=== PATIENT | female | born 2000 | race Caucasian/White ===

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

== ENCOUNTER 2019-02-14 16:01 | Emergency (ER) | payer SELFPAY ==
--- NOTE | 2019-02-14 16:15 | EDM.PDOC ---
ED HPI GENERAL MEDICAL PROBLEM - General Chief Complaint: Gastrointestinal Problem Stated Complaint: NAUSEA/VOMITING - POST TONSILLECTOMY Time Seen by Provider: 02/14/19 16:13 Source of Information: Reports: Patient History Limitations: Reports: No Limitations - History of Present Illness INITIAL COMMENTS - FREE TEXT/NARRATIVE: Patient is a 18-year-old female presents to the ED complaining nausea/vomiting and generalized abdominal cramping with constipation. Patient had a tonsillectomy performed this past Saturday. Since then patient has been vomiting on and off. She's had no issues with her throat postop. At time she's been able to keep food and liquids down. As of recent she has been unable to. She's been taking Zofran and has taken promethazine gel with tetracaine lollipops as well as ibuprofen and Tylenol. She has been using oxycodone on intermittent basis. Mom states the patient does have a history constipation and notes she has been taking MiraLAX prior to surgery. Patient took a suppository yesterday. She does not recall when she had her last BM. Patient denies any fever, ear pain, chest pain, shortness of breath, cough, diarrhea, bloody stool, painful urination, nuchal rigidity, or any additional complaints. Throat Pain Score (Numeric/FACES): 2 - Related Data Allergies Allergy/AdvReac Type Severity Reaction Status Date / Time No Known Allergies Allergy Verified 08/14/18 19:32 Home Meds: Home Meds Ondansetron [Zofran ODT] 1 tab PO Q6HR PRN 02/14/19 [History] Promethazine [Phenergan] 25 mg TOP Q6HR PRN 02/14/19 [History] oxyCODONE 5 mg PO Q4HR PRN 02/14/19 [History] Past Medical History HEENT History: Reports: Allergic Rhinitis, Impaired Vision Genitourinary History: Reports: Other (See Below) Other Genitourinary History: kidney failure at age 11, states it resolved itself Psychiatric History: Reports: Anxiety (untreated), Depression (untreated), Other (See Below) (Insomnia) Other Psychiatric History: difficulty sleeping - Past Surgical History HEENT Surgical History: Reports: Myringotomy w Tube(s) (bilateral), Tonsillectomy Social & Family History - Caffeine Use Caffeine Use: Reports: None - Living Situation & Occupation Living situation: Reports: Single, with Family Occupation: Unemployed ED ROS GENERAL - Review of Systems Review Of Systems: ROS reveals no pertinent complaints other than HPI. ED EXAM, GI/ABD - Physical Exam Exam: See Below Exam Limited By: No Limitations General Appearance: Alert, WD/WN, No Apparent Distress Ears: Hearing Grossly Normal Nose: Normal Inspection Throat/Mouth: Normal Inspection, Normal Voice, No Airway Compromise, Other (S/P tonsillectomy with white eschar to posterior pharynx. No erythema, swelling, uvula deviation or concerning findings. Oral mucosa is moist. ) Head: Atraumatic, Normocephalic Neck: Normal Inspection, Supple Respiratory/Chest: No Respiratory Distress, Lungs Clear, Normal Breath Sounds, No Accessory Muscle Use, Chest Non-Tender Cardiovascular: Normal Peripheral Pulses, Regular Rate, Rhythm, No Murmur GI/Abdominal Exam: Soft, Non-Tender, No Organomegaly, No Distention, Abnormal Bowel Sounds (hyperactive). No: Normal Bowel Sounds Back Exam: Normal Inspection. No: CVA Tenderness (L), CVA Tenderness (R) Extremities: Normal Inspection, Normal Range of Motion Neurological: Alert, Oriented, CN II-XII Intact, Normal Cognition, No Motor/ Sensory Deficits Psychiatric: Normal Affect, Normal Mood Skin Exam: Warm, Dry, Intact, Normal Color Course - Vital Signs Last Recorded V/S: Last Vital Signs Temp 98.4 F 02/14/19 16:11 Pulse 92 02/14/19 16:11 Resp 16 02/14/19 16:11 BP 113/61 02/14/19 16:11 Pulse Ox 100 02/14/19 16:11 - Orders/Labs/Meds Orders: Active Orders 24 hr Category Date Time Status Enema [RC] ASDIRECTED Care 02/14/19 18:22 Active Peripheral IV Care [RC] . DIRECTED Care 02/14/19 16:29 Active Abdomen 2V AP Flat Upright [CR] Stat Exams 02/14/19 16:28 Taken Peripheral IV Insertion Adult [OM.PC] Routine Oth 02/14/19 16:29 Ordered Labs: Laboratory Tests 02/14/19 02/14/19 02/14/19 Range/Units 16:45 16:45 18:30 WBC 6.66 (3.98-10.04) K/mm3 RBC 5.20 (3.98-5.22) M/mm3 Hgb 14.9 (11.2-15.7) gm/L Hct 43.8 (34.1-44.9) % MCV 84.2 (79.4-94.8) fl MCH 28.7 (25.6-32.2) pg MCHC 34.0 (32.2-35.5) g/dl RDW Std Deviation 37.3 (36.4-46.3) fL Plt Count 294 (182-369) K/mm3 MPV 10.1 (9.4-12.3) fl Neutrophils % (Manual) 64 H (40-60) % Band Neutrophils % 0 (0-10) % Lymphocytes % (Manual) 34 (20-40) % Atypical Lymphs % 0 % Monocytes % (Manual) 2 (2-10) % Eosinophils % (Manual) 0 L (0.7-5.8) % Basophils % (Manual) 0 L (0.1-1.2) Platelet Estimate Adequate Plt Morphology Comment Normal RBC Morph Comment Normal Sodium 136 (136-145) mEq/L Potassium 3.9 (3.5-5.1) mEq/L Chloride 99 (98-107) mEq/L Carbon Dioxide 22 (21-32) mEq/L Anion Gap 18.9 H (5-15) BUN 9 (7-18) mg/dL Creatinine 0.7 (0.55-1.02) mg/dL Est Cr Clr Drug Dosing 97.54 mL/min Estimated GFR (MDRD) > 60 (>60) mL/min BUN/Creatinine Ratio 12.9 L (14-18) Glucose 77 (74-106) mg/dL Calcium 9.6 (8.5-10.1) mg/dL Total Bilirubin 0.6 (0.2-1.0) mg/dL AST 21 (15-37) U/L ALT 23 (14-59) U/L Alkaline Phosphatase 93 (46-116) U/L C-Reactive Protein 1.2 H* (<1.0) mg/dL Total Protein 8.5 H (6.4-8.2) g/dl Albumin 4.2 (3.4-5.0) g/dl Globulin 4.3 gm/dL Albumin/Globulin Ratio 1.0 (1-2) Lipase 75 (73-393) U/L Urine Color (Yellow) Urine Appearance (Clear) Urine pH (5.0-8.0) Ur Specific Almo (1.005-1.030) Urine Protein (Negative) Urine Glucose (UA) (Negative) Urine Ketones (Negative) Urine Occult Blood (Negative) Urine Nitrite (Negative) Urine Bilirubin (Negative) Urine Urobilinogen (0.2-1.0) Ur Leukocyte Esterase (Negative) Urine RBC (0-5) /hpf Urine WBC (0-5) /hpf Ur Squamous Epith Cells (0-5) /hpf Urine Bacteria (FEW) /hpf Urine Mucus (FEW) /hpf Urine HCG, Qual Negative (NEGATIVE) 02/14/19 Range/Units 18:30 WBC (3.98-10.04) K/mm3 RBC (3.98-5.22) M/mm3 Hgb (11.2-15.7) gm/L Hct (34.1-44.9) % MCV (79.4-94.8) fl MCH (25.6-32.2) pg MCHC (32.2-35.5) g/dl RDW Std Deviation (36.4-46.3) fL Plt Count (182-369) K/mm3 MPV (9.4-12.3) fl Neutrophils % (Manual) (40-60) % Band Neutrophils % (0-10) % Lymphocytes % (Manual) (20-40) % Atypical Lymphs % % Monocytes % (Manual) (2-10) % Eosinophils % (Manual) (0.7-5.8) % Basophils % (Manual) (0.1-1.2) Platelet Estimate Plt Morphology Comment RBC Morph Comment Sodium (136-145) mEq/L Potassium (3.5-5.1) mEq/L Chloride (98-107) mEq/L Carbon Dioxide (21-32) mEq/L Anion Gap (5-15) BUN (7-18) mg/dL Creatinine (0.55-1.02) mg/dL Est Cr Clr Drug Dosing mL/min Estimated GFR (MDRD) (>60) mL/min BUN/Creatinine Ratio (14-18) Glucose (74-106) mg/dL Calcium (8.5-10.1) mg/dL Total Bilirubin (0.2-1.0) mg/dL AST (15-37) U/L ALT (14-59) U/L Alkaline Phosphatase (46-116) U/L C-Reactive Protein (<1.0) mg/dL Total Protein (6.4-8.2) g/dl Albumin (3.4-5.0) g/dl Globulin gm/dL Albumin/Globulin Ratio (1-2) Lipase (73-393) U/L Urine Color Yellow (Yellow) Urine Appearance Clear (Clear) Urine pH 5.5 (5.0-8.0) Ur Specific Almo > or = 1.030 (1.005-1.030) Urine Protein Negative (Negative) Urine Glucose (UA) Negative (Negative) Urine Ketones 4+ H (Negative) Urine Occult Blood Trace-intact H (Negative) Urine Nitrite Negative (Negative) Urine Bilirubin 1+ H (Negative) Urine Urobilinogen 0.2 (0.2-1.0) Ur Leukocyte Esterase Negative (Negative) Urine RBC 0-5 (0-5) /hpf Urine WBC 0-5 (0-5) /hpf Ur Squamous Epith Cells 10-20 H (0-5) /hpf Urine Bacteria Rare (FEW) /hpf Urine Mucus Moderate H (FEW) /hpf Urine HCG, Qual (NEGATIVE) Meds: Medications Discontinued Medications Generic Name Dose Route Start Last Admin Trade Name Freq PRN Reason Stop Dose Admin Diphenhydramine HCl 50 mg 02/14/19 18:08 02/14/19 18:16 Benadryl IVPUSH 02/14/19 18:09 50 mg ONETIME ONE Administration Sodium Chloride 1,000 mls @ 999 mls/hr 02/14/19 16:29 02/14/19 16:45 Normal Saline IV 02/14/19 17:29 999 mls/hr ONETIME ONE Administration Magnesium Citrate 296 ml 02/14/19 19:44 02/14/19 20:03 Citrate Of Magnesia PO 02/14/19 19:45 296 ml ONETIME ONE Administration Metoclopramide HCl 5 mg 02/14/19 18:08 02/14/19 18:18 Reglan IVPUSH 02/14/19 18:09 5 mg ONETIME ONE Administration Sodium Chloride 10 ml 02/14/19 16:29 02/14/19 16:46 Saline Flush FLUSH 10 ml ASDIRECTED PRN Administration Keep Vein Open - Re-Assessments/Exams Free Text/Narrative Re-Assessment/Exam: Orthostatic vital signs were positive. IV established with normal saline 1 L bolus. Zofran 4 mg IVP ordered as well. Initial labs and studies will include: CBC, chem 14, hCG, lipase, UA, CRP, two-view of the abdomen. X-ray of the abdomen showed increased stool pattern throughout. Nospecific air pattern. No acute findings. Final Interpretation is pending. Labs reviewed with no concerning findings on CBC. AG mildly elevated 18.9. Creatinine normal. CRP 1.2. Lipase WNL. UA is pending. Patient complaining of nausea. Ordered Reglan 5 mg and also benadryl 50mg IVP. UA trace occult blood, 4+ ketones, 1+ bilirubin, mucous and with epithelial cells present. HCG was negative. I did discuss the x-ray of the abdomen with the patient and mother. We opted to use a oil retention enema. 02/14/19 19:15 Reassessment, patient states she is feeling much better. She's not had a bowel movement yet. But she is ready be discharged home. I will send the patient home with mag citrate as well. Discharge instructions as documented. Return precautions were discussed with the patient. Departure - Departure Time of Disposition: 19:40 Disposition: Home, Self-Care 01 Condition: Good Clinical Impression: Vomiting Constipation Qualifiers: Constipation type: unspecified constipation type Qualified Code(s): K59.00 - Constipation, unspecified Hematuria Qualifiers: Hematuria type: unspecified type Qualified Code(s): R31.9 - Hematuria, unspecified - Discharge Information Instructions: Dehydration, Adult, [id number], Constipation, Adult, Nausea and Vomiting, Adult, Preventing Constipation After Surgery, Hematuria, Adult Referrals: Vani Sanchez MD [Primary Care Provider] - Forms: ED Department Discharge Additional Instructions: Will have you take mag citrate this evening upon returning home. Stick close to the toilet. Utilize the Zofran and Phenergan cream as prescribed. Start taking MiraLAX one capful every day with copious amounts of water and juice. Increase your fiber intake. Utilize Tylenol and ibuprofen for pain. If possible refrain from using oxycodone as much as possible since this will worsen the constipation and n/v. Please return back to the ED if you develop any new or worsening symptoms. Please follow up with PCP this coming week to ensure hematuria has resolved. - My Orders Last 24 Hours: My Active Orders 02/14/19 16:28 Abdomen 2V AP Flat Upright [CR] Stat 02/14/19 16:29 Peripheral IV Care [RC] . DIRECTED Peripheral IV Insertion Adult [OM.PC] Routine 02/14/19 18:22 Enema [RC] ASDIRECTED - Assessment/Plan Last 24 Hours: My Active Orders 02/14/19 16:28 Abdomen 2V AP Flat Upright [CR] Stat 02/14/19 16:29 Peripheral IV Care [RC] . DIRECTED Peripheral IV Insertion Adult [OM.PC] Routine 02/14/19 18:22 Enema [RC] ASDIRECTED
[2019-02-14 16:25] VITALS: BP 113/61
[2019-02-14] MEDS ORDERED: Sodium Chloride 0.9% 1,000 ML IV ONE (16:29)
[2019-02-14] MEDS ORDERED: Sodium Chloride 0.9% 10 ML Syringe FLUSH PRN (16:29)
[2019-02-14] MEDS ORDERED: diphenhydrAMINE 50 MG/ML SDV IVPUSH ONE (18:08)
[2019-02-14] MEDS ORDERED: Metoclopramide 10 MG/2 ML SDV IVPUSH ONE (18:08)
[2019-02-14] MEDS ORDERED: Magnesium Citrate Solution 296 ML Bottle PO ONE (19:44)
--- NOTE | 2019-02-15 12:13 | CR ---
Abdomen: Supine view of the abdomen was obtained as well as upright study. Comparison: No prior abdominal x-ray. Bowel gas pattern appears normal. No abnormal calcifications or soft tissue abnormality is seen. Bony structures are unremarkable. Impression: 1. Unremarkable two-view abdominal x-ray. Diagnostic code #1
== END 2019-02-14 20:06 | disposition home or self-care (01) ==
LOC: JD.ED 16:01
DX: K59.00 Constipation, unspecified (principal); R11.2 Nausea with vomiting, unspecified; R31.9 Hematuria, unspecified
CPT/HCPCS: 36415; 74019; 80053; 81001; 81025; 83690; 85007; 85027; 86140; 96361; 96374; 96375; 99283; A9270; J1200; J2765; J7040; 99284

== ENCOUNTER 2020-10-25 15:51 | Emergency (ER) | payer SELFPAY ==
[2020-10-25 16:01] VITALS: BP 133/91; PULSE 147
--- NOTE | 2020-10-25 16:11 | EDM.PDOCBH ---
ED HPI GENERAL MEDICAL PROBLEM - General Chief Complaint: Behavioral/Psych Stated Complaint: DEPRESSION/SUICIDAL THOUGHTS Time Seen by Provider: 10/25/20 15:58 Source of Information: Reports: Patient, RN Notes Reviewed History Limitations: Reports: No Limitations - History of Present Illness INITIAL COMMENTS - FREE TEXT/NARRATIVE: Patient is a 19-year-old female who presents to the ED for the evaluation of her depression and suicidal thoughts. She notes she has had a history of anxiety and depression, since she was young, but she just did not really get the help she needed, or just never really stuck with her. She does not elicit any formal diagnoses of depression or anxiety. She notes she does not come from the best family background, but she states she has been having increasing issues over the last year, where she feels more suicidal than normal. Patient notes in the last few months, she has had increasing fights with her mother, cannot find a job, and was recently notified that she is going to be evicted from her apartment. Apparently she was telling her friends adam, and they reached out to the patient's uncle due to concerns that she was telling her friends adam. She can usually cut herself, and distract herself from wanting to harm herself however she has been developing increasing thoughts of going out into the garage, turning her car on, and succumbing to carbon monoxide poisoning. The patient is not finding cristina in any regular activities of life. She has not been hearing things that are not there, nor is she seeing things that aren't there. Patient denies any other sick-like symptoms, fever/chills, cough/shortness of breath, nausea/vomiting/diarrhea. Patient is not on any regular medications, she denies any previous health history. She notes she does not use drugs or have any other bad habits. headache Pain Score (Numeric/FACES): 8 - Related Data Allergies Allergy/AdvReac Type Severity Reaction Status Date / Time alcohol Allergy Severe Hives Verified 10/25/20 16:02 Home Meds: Home Meds . [No Known Home Meds] 09/08/19 [History] Past Medical History HEENT History: Reports: Allergic Rhinitis, Impaired Vision Genitourinary History: Reports: Other (See Below) Other Genitourinary History: kidney failure at age 11, states it resolved itself Psychiatric History: Reports: Anxiety, Depression, Other (See Below) Other Psychiatric History: difficulty sleeping - Infectious Disease History Infectious Disease History: Reports: Chicken Pox - Past Surgical History HEENT Surgical History: Reports: Myringotomy w Tube(s), Oral Surgery, Tonsillectomy Social & Family History - Family History Family Medical History: No Pertinent Family History - Tobacco Use Tobacco Use Status *Q: Never Tobacco User - Caffeine Use Caffeine Use: Reports: Soda - Recreational Drug Use Recreational Drug Use: No - Living Situation & Occupation Living situation: Reports: Single, with Family Occupation: Unemployed ED ROS GENERAL - Review of Systems Review Of Systems: Comprehensive ROS is negative, except as noted in HPI. ED EXAM, BEHAVIORAL HEALTH - Physical Exam Exam: See Below Exam Limited By: No Limitations General Appearance: Alert, WD/WN, No Apparent Distress, Anxious (generalized a nxiety/tearful) Respiratory/Chest: No Respiratory Distress, Lungs Clear, Normal Breath Sounds, No Accessory Muscle Use, Chest Non-Tender Cardiovascular: Normal Peripheral Pulses, Regular Rate, Rhythm, No Edema GI/Abdominal: Normal Bowel Sounds, Soft, Non-Tender, No Distention, No Mass Extremities: Normal Inspection, Normal Capillary Refill Neurological: Alert, Normal Mood/Affect, Normal Cognition, Normal Reflexes, No Motor/Sensory Deficits Psychiatric: Alert, Oriented, Depressed Mood, Tearful, Suicidal Plan, Suicidal Thoughts. No: Flight of Ideas, Auditory Hallucinations, Visual Hallucinations Skin Exam: Warm, Dry, Intact, Normal color, No rash COURSE, BEHAVIORAL HEALTH COMP - Course Vital Signs: Last Vital Signs Temp 98.2 F 10/25/20 15:57 Pulse 147 H 10/25/20 15:57 Resp 18 10/25/20 15:57 BP 133/91 H 10/25/20 15:57 Pulse Ox 95 10/25/20 15:57 Orders, Labs, Meds: Active Orders 24 hr Category Date Time Status ACETAMINOPHEN [CHEM] Stat Lab 10/25/20 16:20 Received COMPREHENSIVE METABOLIC PN,CMP [CHEM] Stat Lab 10/25/20 16:20 Received ETHANOL BLOOD MEDICAL [CHEM] Stat Lab 10/25/20 16:20 Received SALICYLATE [CHEM] Stat Lab 10/25/20 16:20 Received TSH [CHEM] Stat Lab 10/25/20 16:20 Received Laboratory Tests 10/25/20 10/25/20 10/25/20 Range/Units 16:07 16:20 16:40 WBC 7.31 (3.98-10.04) K/mm3 RBC 5.07 (3.98-5.22) M/mm3 Hgb 14.8 (11.2-15.7) gm/dl Hct 43.6 (34.1-44.9) % MCV 86.0 (79.4-94.8) fl MCH 29.2 (25.6-32.2) pg MCHC 33.9 (32.2-35.5) g/dl RDW Std Deviation 38.7 (36.4-46.3) fL Plt Count 279 (182-369) K/mm3 MPV 10.4 (9.4-12.3) fl Neutrophils % (Manual) 90 H (40-60) % Band Neutrophils % 0 (0-10) % Lymphocytes % (Manual) 7 L (20-40) % Atypical Lymphs % 0 % Monocytes % (Manual) 3 (2-10) % Eosinophils % (Manual) 0 L (0.7-5.8) % Basophils % (Manual) 0 L (0.1-1.2) Platelet Estimate Adequate Plt Morphology Comment Normal RBC Morph Comment Normal Urine HCG, Qual Negative (NEGATIVE) Urine Opiates Screen (OLSUSK=028) Ur Buprenorphine Scrn (CUTOFF=10) Ur Oxycodone Screen (JEQ2AL=784) Urine Methadone Screen (WDOJYI=467) Ur Propoxyphene Screen (KJGOJT=327) Ur Barbiturates Screen (QIOJLG=186) Ur Tricyclics Screen (SKKALV=818) Ur Phencyclidine Scrn (CUTOFF=25) Ur Amphetamine Screen (CXJYLQ=150) U Methamphetamines Scrn (XVJOJC=695) U Benzodiazepines Scrn (NUYBQP=809) U Cocaine Metab Screen (CUTEQC=679) U Marijuana (THC) Screen (CUTOFF=50) Influenza Type A RNA Negative (NEGATIVE) Influenza Type B RNA Negative (NEGATIVE) SARS-CoV-2 RNA (ELIZABET) Negative (NEGATIVE) 10/25/20 Range/Units 16:40 WBC (3.98-10.04) K/mm3 RBC (3.98-5.22) M/mm3 Hgb (11.2-15.7) gm/dl Hct (34.1-44.9) % MCV (79.4-94.8) fl MCH (25.6-32.2) pg MCHC (32.2-35.5) g/dl RDW Std Deviation (36.4-46.3) fL Plt Count (182-369) K/mm3 MPV (9.4-12.3) fl Neutrophils % (Manual) (40-60) % Band Neutrophils % (0-10) % Lymphocytes % (Manual) (20-40) % Atypical Lymphs % % Monocytes % (Manual) (2-10) % Eosinophils % (Manual) (0.7-5.8) % Basophils % (Manual) (0.1-1.2) Platelet Estimate Plt Morphology Comment RBC Morph Comment Urine HCG, Qual (NEGATIVE) Urine Opiates Screen Negative (UWWDPD=968) Ur Buprenorphine Scrn Negative (CUTOFF=10) Ur Oxycodone Screen Negative (RZX7NJ=066) Urine Methadone Screen Negative (CTHDFD=697) Ur Propoxyphene Screen Negative (ZQFOHV=650) Ur Barbiturates Screen Negative (OAXJTR=633) Ur Tricyclics Screen Negative (UDWOAQ=480) Ur Phencyclidine Scrn Negative (CUTOFF=25) Ur Amphetamine Screen Negative (BCDATB=378) U Methamphetamines Scrn Negative (AQJSLF=184) U Benzodiazepines Scrn Negative (IAJNWR=188) U Cocaine Metab Screen Negative (WIHFGT=494) U Marijuana (THC) Screen Negative (CUTOFF=50) Influenza Type A RNA (NEGATIVE) Influenza Type B RNA (NEGATIVE) SARS-CoV-2 RNA (ELIZABET) (NEGATIVE) Medications Discontinued Medications Generic Name Dose Route Start Last Admin Trade Name Freq PRN Reason Stop Dose Admin Lorazepam 0.5 mg 10/25/20 16:22 10/25/20 16:43 Ativan PO 10/25/20 16:23 0.5 mg ONETIME ONE Administration Discharge vs Psych Eval/Treatment:: 10/25/20 16:11 Patient presents to the ED for suicidal ideations, I do believe she is a harm to herself at this time, laboratory evaluation to be obtained along with urinalysis and a COVID-19 screen for psychiatric placement. 10/25/20 17:24 Patient's labs are started result, CBC was within normal limits, hCG is negative, urine drug screen is negative, her flu/Covid swab was negative at today's visit. I have been in contact with PATRICK Hayes and Dr. Nichole is bundle person. I am still awaiting her call back for tentative acceptance. 10/25/20 17:58 I was able to talk with Dr. Nichole, and she does accept the patient for transfer, [facility] will be here around 1830 for transfer to [place]. Departure - Departure Time of Disposition: 17:37 Disposition: DC/Tfer to Psych Hosp/Unit [address] Condition: Good Clinical Impression: Suicidal ideation - Discharge Information *PRESCRIPTION DRUG MONITORING PROGRAM REVIEWED*: No *COPY OF PRESCRIPTION DRUG MONITORING REPORT IN PATIENT SHA: No Referrals: Vani Sanchez MD [Primary Care Provider] - Forms: ED Department Discharge Sepsis Event Note (ED) - Evaluation Sepsis Screening Result: No Definite Risk - Focused Exam Vital Signs: Vital Signs Temp Pulse Resp BP Pulse Ox 10/25/20 15:57 98.2 F 147 H 18 133/91 H 95 - My Orders Last 24 Hours: My Active Orders 10/25/20 16:20 ACETAMINOPHEN [CHEM] Stat COMPREHENSIVE METABOLIC PN,CMP [CHEM] Stat ETHANOL BLOOD MEDICAL [CHEM] Stat SALICYLATE [CHEM] Stat TSH [CHEM] Stat - Assessment/Plan Last 24 Hours: My Active Orders 10/25/20 16:20 ACETAMINOPHEN [CHEM] Stat COMPREHENSIVE METABOLIC PN,CMP [CHEM] Stat ETHANOL BLOOD MEDICAL [CHEM] Stat SALICYLATE [CHEM] Stat TSH [CHEM] Stat
[2020-10-25] MEDS ORDERED: LORazepam 0.5 MG Tab PO ONE (16:22)
[2020-10-25 16:59] LABS: CORONAVIRUS COVID-19 NAA NEGATIVE (NEGATIVE)
[2020-10-25 18:45] LABS: ACETAMINOPHEN 0 ug/mL (10-30)
== END 2020-10-25 18:40 ==
LOC: JD.ED 15:51
DX: R45.851 Suicidal ideations (principal); Z88.8 Allergy status to other drugs, medicaments and biological substances; Z20.822 Contact with and (suspected) exposure to COVID-19
CPT/HCPCS: 0240U; 36415; 80053; 80143; 80179; 80306; 80307; 81025; 84443; 85007; 85027; 99285; A9270

== ENCOUNTER 2022-05-16 10:59 | Emergency (ER) | payer OTHER ==
[2022-05-16 11:11] VITALS: BP 109/74; PULSE 83
[2022-05-16] MEDS: diphenhydrAMINE 50 MG/ML SDV IVPUSH ONE (12:00)
[2022-05-16] MEDS: Ketorolac 30 MG/ML SDV IVPUSH ONE (12:00)
[2022-05-16] MEDS: Ondansetron 4 MG/2 ML SDV IVPUSH ONE (12:00)
[2022-05-16] MEDS: Sodium Chloride 0.9% 10 ML Syringe FLUSH PRN (12:01)
[2022-05-16] MEDS: Sodium Chloride 0.9% 1,000 ML IV STA (12:01)
[2022-05-16 12:31] LABS: ESTIMATED GFR 130 mL/min (>60)
== END 2022-05-16 13:31 | disposition home or self-care (01) ==
LOC: JD.ED 10:59
DX: S09.90XA Unspecified injury of head, initial encounter (principal); Z91.048 Other nonmedicinal substance allergy status; W22.09XA Striking against other stationary object, initial encounter
CPT/HCPCS: 36415; 70450; 80053; 85025; 96361; 96374; 96375; 99284; J1200; J1885; J2405; J3490; J7030

== ENCOUNTER 2023-06-25 15:50 | Emergency (ER) | payer SELFPAY ==
[2023-06-25 16:38] LABS: HEMATOCRIT 39.1 % (37.0-47.0); HEMOGLOBIN 13.5 gm/dl (12.0-16.0); MEAN CORPUSCULAR HEMOGLOBIN 29.7 pg (28.0-32.0); MEAN CORPUSCULAR HGB CONC 34.5 g/dl (32.0-36.0); MEAN CORPUSCULAR VOLUME 85.9 fl (83.0-99.0); MEAN PLATELET VOLUME 10.6 fl (9.4-12.3); PLATELET COUNT,PLT 228 K/mm3 (150-400); RED BLOOD CELL COUNT 4.55 M/mm3 (4.10-5.30); WHITE BLOOD CELL COUNT,WBC 6.26 K/mm3 (3.9-11.3)
[2023-06-25 17:28] LABS: BARBITURATE SCREEN,URINE NEGATIVE (CUTOFF=200); BENZODIAZEPINES SCREEN,URINE NEGATIVE (CUTOFF=150); BUPRENORPHINE SCREEN,URINE NEGATIVE (CUTOFF=10); METHADONE SCREEN, URINE NEGATIVE (CUTOFF=200); METHAMPHETAMINES SCREEN, URINE NEGATIVE (CUTOFF=500); OXYCODONE SCREEN,URINE NEGATIVE (CUT0FF=100); PROPOXYPHENE SCREEN,URINE NEGATIVE (CUTOFF=300); THC SCREEN,URINE 20 NG/ML PRESUMPTIVE POSITIVE (CUTOFF=50)
[2023-06-25 17:29] LABS: BAND PERCENT MAN 1 % (0-10); BASOPHILS PERCENT MAN 1 (0.1-1.2); EOSINOPHILS PERCENT MAN 1 % (0.7-5.8); LYMPHOCYTES % ATYPICAL MANUAL 0 %; LYMPHOCYTES PERCENT MAN 21 % (20-40); MONOCYTES PERCENT MAN 2 % (2-10)
[2023-06-25 17:30] LABS: PLATELET COUNT ESTIMATE ADEQUATE
[2023-06-25 17:32] LABS: AMPHETAMINES SCREEN, URINE NEGATIVE (CUTOFF=500)
[2023-06-25 17:32] LABS: ALANINE AMINOTRANSFERASE,ALT 23 U/L (14-59); ALBUMIN 4.1 g/dl (3.4-5.0); ALKALINE PHOSPHATASE 65 U/L (46-116); ANION GAP 12.7 (5-15); ASPARTATE AMNIOTRANSFERASE,AST 18 U/L (15-37); BILIRUBIN TOTAL 0.5 mg/dL (0.2-1.0); BLOOD UREA NITROGEN,BUN 8 mg/dL (7-18); BUN/CREATININE RATIO 11.4 (14-18); CALCIUM 9.1 mg/dL (8.5-10.1); CARBON DIOXIDE,CO2 26 mEq/L (21-32); CHLORIDE,CL 103 mEq/L (98-107); CREATININE 0.7 mg/dL (0.55-1.02); ESTIMATED GFR 125 mL/min (>60); GLUCOSE RANDOM 91 mg/dL (70-99); POTASSIUM,K 3.7 mEq/L (3.5-5.1); PROTEIN TOTAL,TP 8.2 g/dl (6.4-8.2); SODIUM,NA 138 mEq/L (136-145); TSH 0.824 uIU/mL (0.358-3.74)
[2023-06-25 17:34] LABS: ACETAMINOPHEN 0 ug/mL (10-30)
[2023-06-25 20:30] VITALS: BP 109/67; PULSE 69
== END 2023-06-25 20:11 ==
LOC: JD.ED 15:50
DX: F32.A Depression, unspecified (principal); S71.112A Laceration without foreign body, left thigh, initial encounter; S71.111A Laceration without foreign body, right thigh, initial encounter; X83.8XXA Intentional self-harm by other specified means, initial encounter; R44.3 Hallucinations, unspecified; Z72.0 Tobacco use
CPT/HCPCS: 36415; 80053; 80143; 80179; 80306; 80307; 81025; 84443; 85007; 85027; 93005; 99285

== ENCOUNTER 2024-07-24 21:16 | Emergency (ER) | payer BC ==
[2024-07-24] MEDS: predniSONE 10 MG Tab PO ONE (21:58)
[2024-07-24] MEDS: diphenhydrAMINE 50 MG Cap PO ONE (21:58)
[2024-07-24] MEDS: Famotidine 20 MG Tab PO ONE (21:58)
[2024-07-24 23:02] VITALS: BP 135/85; PULSE 85
== END 2024-07-24 22:10 | disposition home or self-care (01) ==
LOC: JD.ED 21:16
DX: T78.40XA Allergy, unspecified, initial encounter (principal); Z79.899 Other long term (current) drug therapy
CPT/HCPCS: 99282; A9270; J7512; Q0163